=== PATIENT | male | born 1960 | race Caucasian/White ===

== ENCOUNTER 2017-05-19 07:10 | Outpatient (CLI) | payer OTHER | END 2017-05-19 07:31 | disposition home or self-care (01) | LOC: LAB 07:10 | DX: J42 Unspecified chronic bronchitis (principal); E11.65 Type 2 diabetes mellitus with hyperglycemia; D68.8 Other specified coagulation defects; E03.9 Hypothyroidism, unspecified; N39.0 Urinary tract infection, site not specified ==

== ENCOUNTER 2017-06-01 07:12 | Outpatient (CLI) | payer OTHER | END 2017-06-01 07:17 | disposition home or self-care (01) | LOC: SONOGRAMA 07:12 → MAMO-SONO 08:00 | DX: K81.2 Acute cholecystitis with chronic cholecystitis (principal) ==

== ENCOUNTER → 2017-09-05 12:02 | Outpatient (CLI) | payer OTHER | END | disposition home or self-care (01) | LOC: LAB 12:02 | DX: J42 Unspecified chronic bronchitis (principal) ==

== ENCOUNTER 2018-01-25 16:25 | Outpatient (CLI) | payer OTHER | END 2018-01-25 18:22 | disposition home or self-care (01) | LOC: LAB 16:25 | DX: J45.40 Moderate persistent asthma, uncomplicated (principal); R97.21 Rising PSA following treatment for malignant neoplasm of prostate; C61 Malignant neoplasm of prostate ==

== ENCOUNTER 2018-03-16 12:08 | Outpatient (CLI) | payer OTHER | END 2018-03-16 12:21 | disposition home or self-care (01) | LOC: LAB 12:08 | DX: R97.21 Rising PSA following treatment for malignant neoplasm of prostate (principal) ==

== ENCOUNTER 2018-04-10 09:40 | Outpatient (CLI) | payer OTHER | END 2018-04-10 09:57 | disposition home or self-care (01) | LOC: LAB 09:40 | DX: N39.0 Urinary tract infection, site not specified (principal); E11.69 Type 2 diabetes mellitus with other specified complication; E78.2 Mixed hyperlipidemia; D64.89 Other specified anemias ==

== ENCOUNTER 2018-10-02 09:35 | Outpatient (CLI) | payer OTHER | END 2018-10-02 09:46 | disposition home or self-care (01) | LOC: LAB 09:35 | DX: E11.65 Type 2 diabetes mellitus with hyperglycemia (principal); N39.0 Urinary tract infection, site not specified; D64.89 Other specified anemias ==

== ENCOUNTER 2019-03-25 11:42 | Outpatient (CLI) | payer OTHER | END 2019-03-25 12:10 | disposition home or self-care (01) | LOC: LAB 11:42 | DX: R97.21 Rising PSA following treatment for malignant neoplasm of prostate (principal) ==

== ENCOUNTER 2019-05-06 08:45 | Outpatient (CLI) | payer OTHER | END 2019-05-06 08:55 | disposition home or self-care (01) | LOC: LAB 08:45 | DX: E03.8 Other specified hypothyroidism (principal); D64.89 Other specified anemias; N39.0 Urinary tract infection, site not specified; N40.1 Benign prostatic hyperplasia with lower urinary tract symptoms; E78.2 Mixed hyperlipidemia ==

== ENCOUNTER 2019-10-28 11:32 | Outpatient (CLI) | payer OTHER | END 2019-10-28 15:00 | disposition home or self-care (01) | LOC: LAB 11:32 | DX: Z20.828 Contact with and (suspected) exposure to other viral communicable diseases (principal); J30.89 Other allergic rhinitis ==

== ENCOUNTER → 2020-01-18 | Outpatient (CLI) | payer OTHER | END | disposition home or self-care (01) | LOC: LAB 09:22 | PROVIDERS: ATTEND Specialist | DX: D64.89 Other specified anemias (principal); E78.2 Mixed hyperlipidemia; E11.65 Type 2 diabetes mellitus with hyperglycemia ==

== ENCOUNTER 2020-03-14 14:49 | Outpatient (CLI) | payer OTHER | END 2020-03-14 15:01 | disposition home or self-care (01) | LOC: LAB 14:49 | PROVIDERS: ATTEND Urology | DX: R97.21 Rising PSA following treatment for malignant neoplasm of prostate (principal) ==

== ENCOUNTER 2021-05-07 08:34 | Outpatient (CLI) | payer OTHER | END 2021-05-07 08:37 | disposition home or self-care (01) | LOC: SONOGRAMA 08:34 | PROVIDERS: ATTEND Specialist | DX: K75.81 Nonalcoholic steatohepatitis (NASH) (principal); K70.9 Alcoholic liver disease, unspecified ==

== ENCOUNTER 2022-11-04 13:31 | Outpatient (CLI) | payer OTHER | END 2022-11-04 13:38 | disposition home or self-care (01) | LOC: RAD 13:31 | PROVIDERS: ATTEND Specialist | DX: J45.991 Cough variant asthma (principal) ==

== ENCOUNTER → 2025-01-11 13:00 | Outpatient (CLI) | payer OTHER ==
[2025-01-13 16:07] LABS: kappa lambda r 1.30 (0.26-1.65); kappa light 15.7 mg/L (3.3-19.4)
[2025-01-15 18:07] LABS: beta 2 gly iga < 9 (0-25); beta 2 gly igg < 9 (0-20); beta 2 gly igm < 9 (0-32)
== END | disposition home or self-care (01) ==
LOC: LAB 13:00
PROVIDERS: ATTEND Specialist
DX: D47.2 Monoclonal gammopathy (principal); C90.00 Multiple myeloma not having achieved remission

== ENCOUNTER 2025-01-13 07:23 | Outpatient (CLI) | payer OTHER | END 2025-01-13 07:26 | disposition home or self-care (01) | LOC: LAB 07:23 | PROVIDERS: ATTEND Specialist | DX: D47.2 Monoclonal gammopathy (principal); C90.00 Multiple myeloma not having achieved remission ==